=== PATIENT | female | born 1955 | race Caucasian/White ===

== ENCOUNTER → 2018-01-10 | Outpatient (CLI) | payer BC ==
--- NOTE | 2018-01-10 11:40 | ECHOS ---
STRESS ECHOCARDIOGRAM DATE OF SERVICE: 01/10/2018 INDICATIONS: Abnormal EKG. MEDICATIONS: Omeprazole, aspirin. BASELINE HEART RATE: 89 BASELINE BLOOD PRESSURE: 125/52 MAXIMUM HEART RATE: 157 MAXIMUM BLOOD PRESSURE: 164/84 85% MPHR: 133 100% MPHR: 157 METS: 9.3 MAXIMUM STAGE REACHED: III TOTAL EXERCISE TIME: 8 minutes CLINICAL INFORMATION: Baseline rhythm is sinus mechanism, rate of 89, normal axis and intervals. Normal electrocardiogram. Baseline blood pressure 125/52. Patient exercised on Migel protocol for 8 minutes reaching peak rate of 157 beats per minute, which is equal to 100% maximum predicted heart rate. Peak blood pressure 164/84. Test was terminated secondary to fatigue. There was no chest pain. Electrocardiograph monitoring revealed occasional PVCs. There was no evidence of diagnostic ischemic ST deviation. Baseline echocardiogram revealed normal wall motion. At peak exercise, there was normal wall motion augmentation with no hypokinesis or dyskinesis. CONCLUSION: 1. Average exercise tolerance with normal electrograph response to exercise and occasional premature ventricular contractions. 2. Normal stress echocardiogram with no evidence of stress induced ischemia. MMODL / IJN: [id number] /
== END | disposition home or self-care (01) ==
LOC: RADNMMAIN 09:44
PROVIDERS: ATTEND Family Medicine
DX: R94.31 Abnormal electrocardiogram [ECG] [EKG] (principal)
CPT/HCPCS: 93017; 93350

== ENCOUNTER → 2023-06-30 | Outpatient (CLI) | payer BC ==
--- NOTE | 2023-07-06 07:57 | MM ---
Reason for Exam: Screening (asymptomatic). Last mammogram was performed 1 year(s) and 2 month(s) ago. Patient History: Menarche at age 13. First Full-Term at age 17. Hysterectomy at age 35. Risk Values: Nanette 5 year model risk: 1.1%. NCI Lifetime model risk: 3.7%. Prior Study Comparison: 12/28/2017 Bilateral Screening Mammogram, [facility]. 02/05/2021 Bilateral Screening Mammogram, [facility]. 04/16/2022 Bilateral Screening Mammogram, [facility]. Tissue Density: The breast tissue is heterogeneously dense. This may lower the sensitivity of mammography. Findings: Analyzed By CAD. There is no suspicious group of microcalcifications or new suspicious mass in either breast. Overall Assessment: Benign, BI-RAD 2 Management: Screening Mammogram of both breasts in 1 year. . Patient should continue monthly self-breast exams. A clinical breast exam by your physician is recommended on an annual basis. This exam should not preclude additional follow-up of suspicious palpable abnormalities. Note on Nanette scores and lifetime risk: 1. A Nanette score greater than 3% is considered moderate risk. If this is the case, consider specialist referral to assess eligibility for a risk reducing agent. 2. If overall lifetime risk for the development of breast cancer is 20% or higher, the patient may qualify for future screening with alternating mammogram and breast MRI. Electronically signed and approved by: Terry Tillman M.D. Radiologis
== END | disposition home or self-care (01) ==
LOC: RADMAMWWP 13:52
PROVIDERS: ATTEND Family Medicine
DX: Z12.31 Encounter for screening mammogram for malignant neoplasm of breast (principal)
CPT/HCPCS: 77063; 77067

== ENCOUNTER → 2024-09-27 | Outpatient (CLI) | payer OTHER ==
--- NOTE | 2024-10-01 15:42 | MM ---
Reason for Exam: Screening (asymptomatic). Last mammogram was performed 1 year(s) and 3 month(s) ago. Patient History: Menarche at age 13. First Full-Term at age 17. Hysterectomy at age 35. Risk Values: Nanette 5 year model risk: 1.1%. NCI Lifetime model risk: 3.3%. Prior Study Comparison: 02/05/2021 Bilateral Screening Mammogram, [facility]. 04/16/2022 Bilateral Screening Mammogram, [facility]. 06/30/2023 Bilateral MG 3D screening mammo w/cad, [facility]. Tissue Density: The breasts are heterogeneously dense, which may obscure small masses. Findings: Analyzed By CAD. The pattern is symmetrical. No significant interval change. Benign calcifications are present bilaterally. No suspicious groups of microcalcifications, spiculated or lobular masses, architectural distortion or other secondary signs of malignancy are mammographically apparent. Overall Assessment: Benign, BI-RAD 2 Management: Screening Mammogram of both breasts in 1 year. A negative mammogram report should not preclude additional follow up of suspicious palpable abnormalities. Patient should continue monthly self breast exam. A clinical breast exam by your physician is recommended on an annual basis and results should be correlated with mammographic findings. Note on Nanette scores and lifetime risk: 1. A Nanette score greater than 3% is considered moderate risk. If this is the case, consider specialist referral to assess eligibility for a risk reducing agent. 2. If overall lifetime risk for the development of breast cancer is 20% or higher, the patient may qualify for future screening with alternating mammogram and breast MRI. [facility], , 10/01/2024 3:39 PM. Electronically signed and approved by: Miguel Santamaria D.O. Radiologis
== END | disposition home or self-care (01) ==
LOC: RADMAMWWP 12:23
PROVIDERS: ATTEND Family Medicine
DX: Z12.31 Encounter for screening mammogram for malignant neoplasm of breast (principal); R92.333 Mammographic heterogeneous density, bilateral breasts
CPT/HCPCS: 77063; 77067

== ENCOUNTER → 2025-01-11 | Outpatient (CLI) | payer BC ==
--- NOTE | 2025-01-11 08:36 | US ---
EXAMINATION TYPE: US Aorta Screening DATE OF EXAM: 01/11/2025 COMPARISON: 03/24/2016 CLINICAL INDICATION: Female, 69 years old with history of Z13.6 ENCOUNTER FOR SCREENING FOR CARDIOVAS CULAR D; Patient states epigastric pain ?hiatal hernia TECHNIQUE: Multiple sonographic images of the abdominal aorta are obtained with grayscale and color D oppler imaging. FINDINGS: EXAM MEASUREMENTS: Abdominal Aorta: Proximal: 2.4 x 2.2 cm Mid: 1.9 x 2.2 cm Distal: 1.8 x 1.9 cm Bifurcation: Right Iliac: 1.4 x 1.3 cm Left Iliac: 1.5 x 1.4 cm [employer] NOTES: Unremarkable exam Technologist cm incidental 1.3 cm thin-walled cyst in the left hepatic lobe. Aorta is seen thru th e bifurcation. IMPRESSION: No evidence for aortic aneurysm. [facility], , 01/11/2025 8:34 AM
== END | disposition home or self-care (01) ==
LOC: RADUSWWP 08:13
PROVIDERS: ATTEND Family Medicine
DX: Z13.6 Encounter for screening for cardiovascular disorders (principal); K44.9 Diaphragmatic hernia without obstruction or gangrene
CPT/HCPCS: 76706

== ENCOUNTER 2025-06-13 09:32 | Day surgery (SDC) | payer BC ==
[2025-06-11 10:36] VITALS: BMI 32.2
[2025-06-13] MEDS: IV FLUID CONTINUATION 1,000 ML IV ONE (09:54)
[2025-06-13 09:57] VITALS: TEMP 97
[2025-06-13] MEDS: LACTATED RINGERS 1,000 ML IV SCH (10:03)
[2025-06-13] MEDS ORDERED: LIDOCAINE 2% (PF) 20 MG/ML 5 ML VIAL ONE (10:54)
[2025-06-13] MEDS ORDERED: PROPOFOL 10 MG/ML 20 ML VIAL IV ONE (10:54)
--- NOTE | 2025-06-13 11:12 | P.PCN ---
Date of Procedure: 06/13/25 Procedure(s) Performed: BRIEF HISTORY: Patient is a 69-year-old, pleasant, white female scheduled for an upper endoscopy as a part evaluation of longstanding history of GERD. PROCEDURE PERFORMED: Esophagogastroduodenoscopy with biopsy. PREOPERATIVE DIAGNOSIS: Longstanding history of GERD. IV sedation per anesthesia. PROCEDURE: After informed consent was obtained, the patient was brought into the endoscopy unit. IV conscious sedation was administered by Anesthesia under continuous monitoring. Initially the Olympus GIF-140 video endoscope was inserted into the mouth. Esophagus intubated without any difficulty. It was gradually advanced into the stomach and duodenum and carefully examined. The bulb and the second part of the duodenum appeared normal. The scope at this time was withdrawn to the stomach, adequately insufflated with air, and upon careful examination, mucosa of the antrum, and mild gastritis and biopsies were done from this area. Mucosa of the body, cardia and the fundus appeared normal. The scope was then withdrawn into the esophagus. Small sliding-type hiatal hernia noted. The GE junction was located at 39 cm from the incisors. The esophagus appeared normal. There were no erosions or ulcerations seen and the patient tolerated the procedure well. IMPRESSION: 1. Mild antral gastritis. 2. Small hiatal hernia but no evidence of esophagitis or varices RECOMMENDATIONS: The findings of this examination were discussed with the patient as well as her family. She was advised to follow-up with the biopsy results. Continue with Pepcid as needed and follow antireflux measures..
[2025-06-13 11:33] VITALS: RESP 16
[2025-06-13 11:38] VITALS: BP 101/73; PULSE 62
== END 2025-06-13 12:04 | disposition home or self-care (01) ==
LOC: ORWHC2ENDO 09:32
PROVIDERS: ATTEND Internal Medicine Gastroenterology
DX: K21.9 Gastro-esophageal reflux disease without esophagitis (principal); K44.9 Diaphragmatic hernia without obstruction or gangrene; K29.70 Gastritis, unspecified, without bleeding; Z79.899 Other long term (current) drug therapy; Z88.2 Allergy status to sulfonamides
CPT/HCPCS: 88305; 43239; J2704; J2003